=== PATIENT | female | born 1960 | race Caucasian/White ===

== ENCOUNTER 2017-08-13 23:14 | Emergency (ER) | payer MEDICAID ==
[2017-08-13 23:21] VITALS: BP 129/101; PULSE 90; RESP 16; TEMP 97.9; O2SAT 94
--- NOTE | 2017-08-13 23:44 | EDPHY ---
General - History Smoking Status: Never smoked Narrative: CHIEF COMPLAINT: Right foot injury HISTORY OF PRESENT ILLNESS: Patient complains of right foot injury that happened on Saturday while she was in the shower. She says that she somehow slipped, twisting her right foot. She did so trying to stop herself from falling. She did not strike her head or lose conscious. She has no chest, back or abdominal pain. Her pain is only in the right midfoot. She has been applying ice and elevating. She has been using naturopathic anti-inflammatories. She has had significant improvement. She has no numbness or tingling. She has no heel pain. No pain in the proximal heredia or knee. No injury elsewhere. No other associated complaints or modifying factors. ESTABLISHED ORTHOPEDIST: None REVIEW OF SYSTEMS: Ten systems reviewed and are negative unless otherwise noted in the HPI SOCIAL HISTORY: Nonsmoker. 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 Symmetric PT pulses 2+. Brisk cap refill Neurological: A&O, normal proprioception of the right great toe. Normal light sensation in the dorsum of the right foot. No ft drop. Skin: Warm and dry, no rash. No puncture. No laceration. No ecchymosis or cellulitis. Extremities: Tenderness to the right midfoot. Bilateral hallux valgus. Range of motion of the feet and ankle symmetric. There is no tenderness to firm palpation of the right calcaneus. Psychiatric: Mood and affect normal DIFFERENTIAL DIAGNOSES: Including but not limited to metatarsal fracture, mid foot sprain, strain, hematoma, Lisfranc injury MDM: 11:30 p.m. Acute sprain of the right foot that occurred on Saturday. No deformity on examination. Neurovascular intact. X-rays pending. 11:40 p.m. X-ray as read by me reveals no acute fracture. There are chronic changes that appear to be unchanged from April 2016. Clinically she has been improving and I do not suspect fracture. I will place her in a postoperative shoe. She will be discharged with instructions to continue her naturopathic medicine and consider anti-inflammatories as discussed. She will be provided the on-call orthopedic surgeon for outpatient follow-up. She will also follow up with her primary care physician. We discussed ED precautions and she is comfortable this plan. She is discharged home fully ambulatory, neurovascular intact, in stable condition. SUPERVISION: This patient was independently evaluated without direct involvement of or examination by the attending physician. ED Precautions: Worsening pain. Erythema, edema, cyanosis, pallor, paresthesia or anesthesia. (Az Gonzalez) Medical Decision Making: PHYSICIAN DOCUMENTATION: The patient was evaluated and managed by the Physician Bed Operator. My co- signature indicates that I have reviewed this chart and I agree with the findings and plan of care as documented. I am the secondary supervising physician. (Rocio Mejia) - Diagnostics Imaging Results: Imaging Impressions Foot X-Ray 08/13/17 23:22 Impression: Negative for fracture. - Objective Vital Signs: Initial Vital Signs Temperature (C) 36.6 C 08/13/17 23:19 Heart Rate 90 08/13/17 23:19 Respiratory Rate 16 08/13/17 23:19 Blood Pressure 129/101 H 08/13/17 23:19 O2 Sat (%) 94 08/13/17 23:19 O2 Delivery Mode Room Air,Transtracheal Allergies/Adverse Reactions: codeine Allergy (Intermediate, Verified 09/18/15 20:43) Vomiting gluten [Gluten] Allergy (Intermediate, Verified 09/18/15 20:43) Vomiting hydrocodone bitartrate [From Vicodin] Allergy (Intermediate, Verified 09/18/15 20:43) Vomiting Home Medications: Medication Instructions Recorded Herbal Drugs 04/17/16 Departure - Departure Disposition: Home, Routine, Self-Care Clinical Impression: Sprain of foot, right Qualifiers: Encounter type: initial encounter Qualified Code(s): S93.601A - Unspecified sprain of right foot, initial encounter Condition: Good Instructions: Foot Sprain (ED) Additional Instructions: 1. Ice and elevate the extremity often 2. Ibuprofen 600 mg every 6-8 hours as needed for 7 days and stop 3. Contact your primary care physician for outpatient follow-up 4. Contact the on-call orthopedic surgeon as provided as needed if no improvement in her pain in the next 10-14 days Referrals: Marylou Martines PA [Primary Care Provider] - As per Instructions Jason Carrillo MD [Medical Doctor] - As per Instructions
== END 2017-08-14 | disposition home or self-care (01) ==
DX: S93.601A Unspecified sprain of right foot, initial encounter (principal); W01.0XXA Fall on same level from slipping, tripping and stumbling without subsequent striking against object, initial encounter

== ENCOUNTER 2018-03-11 16:35 | Emergency (ER) | payer MEDICAID ==
[2018-03-11] MEDS ORDERED: DEXAMETHASONE 10 MG/ML VIAL IVP ONE (16:56)
[2018-03-11] MEDS ORDERED: NS 1,000 ML IV ONE (16:56)
[2018-03-11] MEDS ORDERED: KETOROLAC 30 MG/1 ML SDV IVP ONE (16:56)
[2018-03-11] MEDS ORDERED: METOCLOPRAMIDE 10 MG/2 ML VIAL IVP ONE (16:56)
--- NOTE | 2018-03-11 17:00 | EDPHY ---
H & P Stated Complaint: 48 hrs ago increased stress/developed throbbing sultana/getting better Time Seen by Provider: 03/11/18 16:57 HPI/ROS: HPI: This is a 57-year-old female who presents with Chief Complaint: 48 hrs ago increased stress/developed sultana/getting better Location: Generalized head Quality: Dull achiness Duration: 48 hr Signs and Symptoms: no fever, no nausea, no vomiting, no photophobia, no noise sensitivity, no neck stiffness, no ear pain, no tinnitus, no nasal congestion, no sinus pressure, no weakness, no radiation, no aura, no chest pain, no shortness of breath, no abdominal pain Timing: Improving Severity: Isls-el-ozrfxous Context: Patient has a history of cyclical vomiting syndrome and chronic nausea vomiting presents with complaints of generalized headache described as dull aching is nonradiating in nature for the last 48 hr that is slowly improving. She was able to drive herself to the emergency room today without any difficulty. She denies any visual changes, fever, neck stiffness, radiation , weakness, chest pain, shortness of breath. After further questioning, patient reports that she has a 20-year-old autistic daughter that she is trying to get enrolled in school multimedia production assistant respite care as she is quite difficult to manage at home and this causes her considerable stress. She has no prior history of migraine headaches. She does report she has a decreased appetite. Denies any upper respiratory symptoms, dizziness, urinary symptoms. Modifying Factors: None Comment: ROS: see HPI Constitutional: No fever, no chills, no weight loss Eyes: No blurred vision Respiratory: No shortness of breath, no cough Cardiovascular: No chest pain, no palpitations Gastrointestinal: No nausea, no vomiting, no diarrhea, no hematemesis, no blood in stool Genitourinary: No dysuria, no blood in urine Extremities: No myalgias, no edema Neurologic: No weakness, no numbness Skin: No rashes, no petechiae Hematologic: No bruising, no bleeding MEDICAL/SURGICAL/SOCIAL HISTORY: PMH- cyclic vomiting, hiatal hernia, ulcers, kidney infections, chronic n/v, esophageal varacies, PTSD PSH- L knee, finger, and oral Social history: Never smoked Family history noncontributory. CONSTITUTIONAL: Extremely well-appearing talkative middle-aged white female. awake and alert, no obvious distress HEENT: Atraumatic and normocephalic, PERRL, EOMI. Nares patent; no rhinorrhea; no nasal mucosal edema. Tympanic membranes clear. Oropharynx clear, no exudate and moist pink mucosa. Airway patent. No lymphadenopathy. No meningismus. Cardiovascular: Normal S1/S2, regular rate, regular rhythm, without murmur rub or gallop. PULMONARY/CHEST: Symmetrical and nontender. Clear to auscultation bilaterally. Good air movement. No accessory muscle usage. ABDOMEN: Soft, nondistended, nontender, no rebound, no guarding, no peritoneal signs, no masses or organomegaly. No CVAT. EXTREMITIES: 2/2 pulses, strength 5/5, no deformities, no clubbing, no cyanosis or edema. NEUROLOGICAL: no focal neuro deficits. GCS 15. Cranial nerves 2-12 grossly intact. SKIN: Warm and dry, no erythema. no rash. Good capillary refill. Source: Patient Exam Limitations: No limitations - Personal History Current Tetanus Diphtheria and Acellular Pertussis (TDAP): Yes Tetanus Vaccine Date: 06/2011 - Medical/Surgical History Hx Asthma: No Hx Chronic Respiratory Disease: No Hx Diabetes: No Hx Cardiac Disease: No Hx Renal Disease: No Hx Cirrhosis: No Hx Alcoholism: No Hx HIV/AIDS: No Hx Splenectomy or Spleen Trauma: No Other PMH: PMH- cyclic vomiting, hiatal hernia, ulcers, kidney infections, chronic n/v, esophageal varacies, PTSD. PSH- L knee, finger, and oral - Social History Smoking Status: Never smoked Constitutional: Initial Vital Signs Temperature (C) 36.7 C 03/11/18 16:46 Heart Rate 99 03/11/18 16:46 Respiratory Rate 19 03/11/18 16:46 Blood Pressure 140/100 H 03/11/18 16:46 O2 Sat (%) 94 03/11/18 16:46 O2 Delivery Mode Room Air Allergies/Adverse Reactions: codeine Allergy (Intermediate, Verified 03/11/18 16:46) Vomiting gluten [Gluten] Allergy (Intermediate, Verified 03/11/18 16:46) Vomiting hydrocodone bitartrate [From Vicodin] Allergy (Intermediate, Verified 03/11/18 16:46) Vomiting Home Medications: Medication Instructions Recorded Herbal Drugs 04/17/16 Medical Decision Making ED Course/Re-evaluation: Vital signs reviewed and stable. No systemic signs. Doubt infectious etiology. No indication for lumbar puncture. Will obtain laboratory studies and give 1 L normal saline, IV Ativan 1 mg, IV Benadryl 25 mg, IV Reglan 10 mg, IV Decadron 8 mg, IV Toradol 30 mg No LOC. No neurological deficits. No indication for CT or MRI imaging of the brain 1729: notified by [place] 0.01 Labs reviewed. No signs of leukocytosis/anemia/platelet dysfunction/ANDRE/ elevated LFTs/electrolyte imbalance/ACS. Reassessed patient who reports improvement in symptoms. Suspect stress related headache. Advised to follow up with primary care provider and supportive care. This patient was seen under the supervision of my secondary supervising physician. I evaluated care for this patient independently. Discussed this patient with Dr. Dallas. Differential Diagnosis: Headache including but not limited to subarachnoid hemorrhage, migraine headache , tension headache and infectious causes such as meningitis, pharyngitis and sinusitis. - Data Points Laboratory Results: Laboratory Results 03/11/18 17:12 03/11/18 17:12 03/11/18 03/11/18 03/11/18 17:16 17:12 17:12 WBC 8.58 10^3/uL 10^3/uL (3.80-9.50) RBC 5.06 10^6/uL 10^6/uL (4.18-5.33) Hgb 14.9 g/dL g/dL (12.6-16.3) Hct 43.3 % % (38.0-47.0) MCV 85.6 fL fL (81.5-99.8) MCH 29.4 pg pg (27.9-34.1) MCHC 34.4 g/dL g/dL (32.4-36.7) RDW 13.6 % % (11.5-15.2) Plt Count 335 10^3/uL 10^3/uL (150-400) MPV 9.7 fL fL (8.7-11.7) Neut % (Auto) 61.5 % % (39.3-74.2) Lymph % (Auto) 32.8 % % (15.0-45.0) [place] % (Auto) 4.5 % % (4.5-13.0) Eos % (Auto) 0.3 % L % (0.6-7.6) Baso % (Auto) 0.8 % % (0.3-1.7) Nucleat RBC Rel Count 0.0 % % (0.0-0.2) Absolute Neuts (auto) 5.27 10^3/uL 10^3/uL (1.70-6.50) Absolute Lymphs (auto) 2.81 10^3/uL 10^3/uL (1.00-3.00) Absolute Monos (auto) 0.39 10^3/uL 10^3/uL (0.30-0.80) Absolute Eos (auto) 0.03 10^3/uL 10^3/uL (0.03-0.40) Absolute Basos (auto) 0.07 10^3/uL 10^3/uL (0.02-0.10) Absolute Nucleated RBC 0.00 10^3/uL 10^3/uL (0-0.01) Immature Gran % 0.1 % % (0.0-1.1) Immature Gran # 0.01 10^3/uL 10^3/uL (0.00-0.10) Sodium 141 mEq/L mEq/L (135-145) Potassium 3.9 mEq/L mEq/L (3.3-5.0) Chloride 107 mEq/L mEq/L (97-110) Carbon Dioxide 22 mEq/l mEq/l (22-31) Anion Gap 12 mEq/L mEq/L (8-16) BUN 13 mg/dL mg/dL (7-23) Creatinine 0.6 mg/dL mg/dL (0.6-1.0) Estimated GFR > 60 Glucose 119 mg/dL H mg/dL (70-100) Calcium 9.9 mg/dL mg/dL (8.5-10.4) POC Troponin I 0.01 ng/mL ng/mL (0.00-0.08) Medications Given: Discontinued Medications Dexamethasone (Decadron Injection) 10 mg IVP EDNOW ONE Stop: 03/11/18 16:57 Last Admin: 03/11/18 17:25 Dose: 10 mg Diphenhydramine HCl (Benadryl Injection) 25 mg IVP EDNOW ONE Stop: 03/11/18 16:57 Last Admin: 03/11/18 17:25 Dose: 25 mg Sodium Chloride (Ns) 1,000 mls @ 0 mls/hr IV ONCE ONE; Wide Open PRN Reason: Protocol Stop: 03/11/18 16:57 Last Admin: 03/11/18 17:24 Dose: 1,000 mls Ketorolac Tromethamine (Toradol) 30 mg IVP EDNOW ONE Stop: 03/11/18 16:57 Last Admin: 03/11/18 17:24 Dose: 30 mg Metoclopramide HCl (Reglan Injection) 10 mg IVP EDNOW ONE Stop: 03/11/18 16:57 Last Admin: 03/11/18 17:25 Dose: 10 mg Point of Care Test Results: Chemistry 03/11/18 17:16 POC Troponin I 0.01 ng/mL ng/mL (0.00-0.08) Departure - Departure Disposition: Home, Routine, Self-Care Clinical Impression: Stress headache Condition: Good Instructions: Stress (ED), General Headache (ED) Additional Instructions: Laboratory studies today were grossly unremarkable. Rest as much as possible over the next 1-2 days until you are feeling better. Consume a minimum of 8-10 glasses of water or electrolyte fluid replacement drinks that include Gatorade, Powerade, Pedialyte. Return to the ER immediately if you have progressive headaches, neurologic deficits, gait abnormality, visual disturbance, slurred speech, or any other symptom that concerns you. Referrals: Marylou Martines PA [Primary Care Provider] - 5-7 days, if not improved
[2018-03-11 17:29] LABS: PLATELET COUNT 335 10^3/uL (150-400)
[2018-03-11 18:37] VITALS: BP 116/53
== END 2018-03-11 18:36 | disposition home or self-care (01) ==
DX: R51 Headache (principal); F43.9 Reaction to severe stress, unspecified; E86.9 Volume depletion, unspecified
CPT/HCPCS: 84484-PO; 96374; J1100; J1200; J1885; J2765

== ENCOUNTER 2018-11-21 16:01 | Emergency (ER) | payer MEDICAID ==
[2018-11-21] MEDS ORDERED: IOPAMIDOL (ISOVUE-300) 100 ML BTL ONE ×3 (19:25→20:02)
[2018-11-21 20:35] VITALS: BP 175/102
[2018-11-21] MEDS ORDERED: OXYCODONE/APAP 5/325MG PREPACK#4 BTL TAKEHOME ONE (21:03)
--- NOTE | 2018-11-21 21:03 | EDPHY ---
H & P Stated Complaint: [facility] fall Time Seen by Provider: 11/21/18 17:09 HPI/ROS: Chief complaint: Left leg pain, fall with injuries History of present illness: This is a 58-year-old female who presents to the emergency department for left leg pain resulting in a fall with injuries. She states last week she twisted her left knee. It was mildly painful and swollen.It has been hard to walk and 3 days ago she tripped and fell landing on the left side of her body. Since then she has had left-sided chest wall and abdominal pain as well as continued knee pain. She has developed a headache. However she does not believe she hit her head when she fell. There was no loss of consciousness. Although the knee pain appears precipitated by twisting it she is concerned for a blood clot. She denies associated signs or symptoms including. Review of systems: A 10 point review of systems was obtained and other than described above was negative - Personal History Current Tetanus/Diphtheria Vaccine: Yes Tetanus Vaccine Date: 06/2011 - Medical/Surgical History Hx Asthma: No Hx Chronic Respiratory Disease: No Hx Diabetes: No Hx Cardiac Disease: No Hx Renal Disease: No Hx Cirrhosis: No Hx Alcoholism: No Hx HIV/AIDS: No Hx Splenectomy or Spleen Trauma: No Other PMH: PMH- cyclic vomiting, hiatal hernia, ulcers, kidney infections, chronic n/v, esophageal varacies, PTSD. PSH- L knee, finger, and oral - Social History Smoking Status: Never smoked - Physical Exam Exam: General Appearance: General: Alert, nontoxic Eyes: PERRLA Respiratory: Lungs clear to auscultation bilaterally Cardiac: Regular rate and rhythm. Gastrointestinal: There is tenderness to the left upper quadrant. The rest of the abdomen is nontender. There is no guarding. Bowel sounds are normal. Neurological: Alert and oriented x4. Cranial nerves 2-12 grossly intact. Strength and sensation intact and symmetrical. Skin: No lesions consistent with trauma. Musculoskeletal: The head is nontender. No crepitus or bony deformity. The spine is nontender to palpation along its entire length. There is no crepitus, bony deformity or step-off. There is mild tenderness to the left, lateral, inferior chest wall without specific point tenderness, no crepitus, or subcutaneous air. There is tenderness to the lateral aspect of the left knee. The knee joint appears stable. She is flexing extending it well. The rest of the extremities are unremarkable. Constitutional: Initial Vital Signs Temperature (C) 36.6 C 11/21/18 16:31 Heart Rate 77 11/21/18 16:31 Respiratory Rate 18 11/21/18 16:31 Blood Pressure 203/93 H 11/21/18 16:31 O2 Sat (%) 96 11/21/18 16:31 O2 Delivery Mode Room Air Allergies/Adverse Reactions: codeine Allergy (Intermediate, Verified 11/21/18 16:35) Vomiting gluten [Gluten] Allergy (Intermediate, Verified 11/21/18 16:35) Vomiting hydrocodone bitartrate [From Vicodin] Allergy (Intermediate, Verified 11/21/18 16:35) Vomiting Home Medications: Medication Instructions Recorded Herbal Drugs 04/17/16 oxyCODONE/APAP 5/325 [Percocet 1 tab PO Q6H #10 tab 11/21/18 5/325 (*)] Medical Decision Making - Diagnostics Imaging Results: Imaging Impressions Abdomen CT 11/21/18 17:23 Impression: Negative CT scan of the abdomen and pelvis, specifically, no posttraumatic sequela identified. Results called to the emergency department on 11/21/2018 at 20:40. Knee X-Ray 11/21/18 17:23 Impression: 1. No evidence of left knee fracture. 2. Chondrocalcinosis in the tibiofemoral compartment. 3. Lateral patellar tilt with moderate patellofemoral joint space narrowing suggesting abnormal patellar tracking. 4. Medial soft tissue swelling which may represent trauma to the medial retinaculum or medial collateral ligament. Consider MRI imaging for internal derangement if clinically indicated. Ribs w/Chest X-Ray 11/21/18 17:23 IMPRESSION: 1. No definite left rib fracture. 2. No acute pulmonary disease. 3. No pneumothorax. Extremity Venous Study 11/21/18 17:24 Impression: 1. No evidence of deep vein thrombosis in the left lower extremity. 2. Suspect a Live's cyst in the left popliteal fossa. Results called and discussed with JAYLIN Snowden on 11/21/2018 at 19:41. Imaging: Discussed imaging studies w/ phlebotomist lab assistant Radiologist, I viewed and interpreted images myself ED Course/Re-evaluation: The patient was seen under the supervision of my secondary supervising physician Dr. Elpidio Gordon. Patient presents with left knee pain that began after she twisted it. It has been painful and ultimately resulted in the fall with pain to the left side of her body. Imaging studies were negative for significant traumatic injury. She was concerned for blood clot although symptoms were precipitated by traumatic event. Ultrasound was obtained and negative. She does have a headache although she does not believe there was a traumatic injury to the head. Nevertheless, I offered a CT scan of the head. She has declined. Initially she did not want pain medicine. However she does appear very uncomfortable. Ultimately she agreed to be discharged with Percocet. She has taken this before and tolerated it well. Home care is discussed. She is asked to follow up with both her primary care doctor as well as an orthopedic doctor for recheck. Strict return precautions were given. The patient voiced understanding and agreement with plan. Differential Diagnosis: Included but not limited to musculoskeletal contusion, sprain or strain, bony fracture as well as intra abdominal injuries, doubtful thromboembolic disease - Data Points Laboratory Results: 11/21/18 19:22 POC Hgb 15.6 gm/dL gm/dL (12.6-16.3) POC Hct 46 % % (38-47) POC Sodium 143 mEq/L mEq/L (135-145) POC Potassium 3.5 mEq/L mEq/L (3.3-5.0) POC Chloride 107 mEq/L mEq/L (97-110) POC Total CO2 23 mEq/L mEq/L (22-31) POC BUN 11 mg/dL mg/dL (7-23) POC Creatinine 0.6 mg/dL mg/dL (0.6-1.0) POC Glucose 88 mg/dL mg/dL (70-100) Medications Given: Discontinued Medications Oxycodone/Acetaminophen (Percocet 5/325mg Prepack#4) 1 btl TAKEHOME EDNOW ONE Stop: 11/21/18 21:04 Last Admin: 11/21/18 21:19 Dose: 1 btl Point of Care Test Results: Chemistry 11/21/18 19:22 POC Sodium 143 mEq/L mEq/L (135-145) POC Potassium 3.5 mEq/L mEq/L (3.3-5.0) POC Chloride 107 mEq/L mEq/L (97-110) POC Total CO2 23 mEq/L mEq/L (22-31) POC BUN 11 mg/dL mg/dL (7-23) POC Creatinine 0.6 mg/dL mg/dL (0.6-1.0) POC Glucose 88 mg/dL mg/dL (70-100) ISTAT H&H 11/21/18 19:22 POC Hgb 15.6 gm/dL gm/dL (12.6-16.3) POC Hct 46 % % (38-47) Departure - Departure Disposition: Home, Routine, Self-Care Clinical Impression: Contusion Qualifiers: Encounter type: initial encounter Contusion area: abdominal wall Qualified Code (s): S30.1XXA - Contusion of abdominal wall, initial encounter Knee sprain Qualifiers: Encounter type: initial encounter Involved ligament of knee: unspecified ligament Laterality: left Qualified Code(s): S83.92XA - Sprain of unspecified site of left knee, initial encounter Condition: Good Instructions: Oxycodone/Acetaminophen (By mouth), Contusion in Adults (ED), Knee Pain (ED) Additional Instructions: Follow-up with your primary care doctor and an orthopedic doctor for continued care You were offered a CT scan of the head today, you declined You have been prescribed [Tyndall] for pain. [Tyndall] contains Tylenol, do not take extra Tylenol/acetaminophen/Apap with it. It is sedating. Little if symptoms worsen or new symptoms develop return to the emergency room for recheck Referrals: Marylou Martines PA [Primary Care Provider] - As per Instructions Shlomo Aden MD [Medical Doctor] - As per Instructions Prescriptions: oxyCODONE/APAP 5/325 [Percocet 5/325 (*)] 1 tab PO Q6H #10 tab
== END 2018-11-21 21:26 | disposition home or self-care (01) ==
DX: S30.1XXA Contusion of abdominal wall, initial encounter (principal); X50.1XXA Overexertion from prolonged static or awkward postures, initial encounter; W01.0XXA Fall on same level from slipping, tripping and stumbling without subsequent striking against object, initial encounter; Y99.9 Unspecified external cause status
CPT/HCPCS: 82435-PO; 82565-PO; 82947-PO; 84132-PO; 84295-PO; 84520-PO; 85014-ER; Q9967